=== PATIENT | female | born 1965 | race Caucasian/White ===

== ENCOUNTER 2018-05-02 18:34 | Emergency (ER) | payer SELFPAY ==
[~2018-05-02] VITALS: Ht 160 cm; Wt 63.5 kg
--- NOTE | 2018-05-02 18:41 | NUR ---
Dr Gupta at the bedside for MSE.
[2018-05-02] MEDS ORDERED: NITROGLYCERIN 0.4 MG/TAB BOTTLE SL ONE ×2 (18:45→18:50)
[2018-05-02] MEDS ORDERED: ASPIRIN 325 MG TABLET PO ONE (18:45)
[2018-05-02] MEDS ORDERED: IV NORMAL SALINE 500 ML BAG IV ONE (18:45)
[2018-05-02] MEDS ORDERED: ASPIRIN 325 MG TABLET ONE (18:50)
--- NOTE | 2018-05-02 18:57 | NUR ---
Pt states chest pain is 2/10 at this time, not wishing to have her 2nd Nitro.
[2018-05-02 19:03] LABS: BASOPHILS # (AUTO) 0.1 K/uL (0.0-8.0); BASOPHILS % (AUTO) 0.8 % (0.0-2.0); EOSINOPHILS # (AUTO) 0.1 K/uL (0.0-0.7); EOSINOPHILS % (AUTO) 2.1 % (0.0-7.0); HEMATOCRIT 38.9 % (31.2-41.9); HEMOGLOBIN 13.1 g/dL (10.9-14.3); LYMPHOCYTES # (AUTO) 1.7 K/uL (20.0-40.0); LYMPHOCYTES % (AUTO) 25.2 % (20.5-51.5); MEAN CORPUSCULAR HEMOGLOBIN 28.9 uug (24.7-32.8); MEAN CORPUSCULAR HGB CONC 34 g/dL (32.3-35.6); MEAN CORPUSCULAR VOLUME 85.9 fL (75.5-95.3); MONOCYTES # (AUTO) 0.4 K/uL (2.0-10.0); NEUTROPHILS # (AUTO) 4.5 K/uL (1.8-8.9); NEUTROPHILS % (AUTO) 65.9 % (38.5-71.5); PLATELET COUNT (AUTO) 265 K/uL (179-408); RED BLOOD CELL COUNT(AUTO) 4.53 MIL/uL (3.63-4.92); WHITE BLOOD COUNT (AUTO) 6.8 K/uL (3.8-11.8)
--- NOTE | 2018-05-02 19:05 | NUR ---
Pt went down to radiology dept for CT scan at this time.
[2018-05-02 19:23] LABS: BILIRUBIN,DIRECT 0.1 mg/dL (0.0-0.2); BILIRUBIN,TOTAL 0.2 mg/dL (0.2-1.0); CREATININE 0.7 mg/dL (0.6-1.3); POTASSIUM 3.6 mmol/L (3.5-5.1); TOTAL PROTEIN, SERUM 7.5 g/dL (6.4-8.2)
[2018-05-02] MEDS ORDERED: DICYCLOMINE HCL 10 MG/5 ML UDC LIQ PO ONE (19:30)
[2018-05-02] MEDS ORDERED: MAG HYDROX/AL HYDROX/SIMETH 30 ML LIQUID UDC PO ONE (19:30)
--- NOTE | 2018-05-02 19:30 | NUR ---
Pt back from radiology dept. NAD noted.
[2018-05-02] MEDS ORDERED: DICYCLOMINE HCL 10 MG/5 ML UDC LIQ ONE (19:34)
[2018-05-02] MEDS ORDERED: MAG HYDROX/AL HYDROX/SIMETH 30 ML LIQUID UDC ONE (19:34)
--- NOTE | 2018-05-02 19:54 | NUR ---
IV removed. Catheter intact and site benign. Pressure and 4x4 gauze applied to site. No bleeding noted.
--- NOTE | 2018-05-02 19:54 | NUR ---
Patient discharged to home in stable conditon. Written and verbal after care instructions given. Patient verbalizes understanding of instructions. Pt ambulated out of ER in steady gait accompanied by family members. All belongings with pt. ELYSSA. EUNICE noted. Pt states she feels much better.
[2018-05-02 19:56] VITALS: BP 123/69
== END 2018-05-02 19:57 | disposition home or self-care (01) ==
LOC: ER 18:34
DX: K21.0 Gastro-esophageal reflux disease with esophagitis (principal)
CPT/HCPCS: 36415; 70030-TC; 70450; 71045; 83690; 85025; 85730; 93005; A4663; J7040